=== PATIENT | male | born 1995 | race Hispanic/Latino ===

== ENCOUNTER 2018-12-19 07:35 | Emergency (ER) | payer OTHER ==
[~2018-12-19] VITALS: Ht 165.1 cm; Wt 81.8 kg
[2018-12-19] MEDS ORDERED: NS 1,000 ML IV ONE (07:45)
[2018-12-19 08:43] LABS: BASO % 0.5 % (0.0-1.0); EOS % 0.3 % (0.0-3.0); HEMATOCRIT 46.6 % (42.0-52.0); HEMOGLOBIN 15.9 g/dl (13.5-17.5); LYMPH % 13.1 % (24.0-44.0); MEAN CORPUSCULAR HEMOGLOBIN 31.7 pg (27.0-33.0); MEAN CORPUSCULAR HGB CONC 34.1 g/dl (32.0-36.5); MEAN CORPUSCULAR VOLUME 92.8 fl (80.0-96.0); MONO # 0.5 10^3/uL (0.0-0.8); MONO % 6.2 % (0.0-5.0); NEUTROPHILS # 6.3 10^3/uL (1.5-8.5); PLATELET COUNT, AUTOMATED 267 10^3/uL (150-450); RED BLOOD COUNT 5.02 10^6/uL (4.30-6.10)
[2018-12-19 08:57] LABS: INR 0.94; PROTHROMBIN TIME 12.3 SECONDS (11.8-14.0)
[2018-12-19 08:58] LABS: PARTIAL THROMBOPLASTIN TIME 31.6 SECONDS (25.0-38.4)
[2018-12-19] MEDS ORDERED: KETOROLAC 30 MG/ML VIAL (J1885) IV ONE ×2 (09:00→11:00)
[2018-12-19] MEDS ORDERED: ISOVUE-370 76% 100ML VIAL (Q9967) As Ordered ONE (09:02)
--- NOTE | 2018-12-19 09:13 | REP ---
Portable chest x-ray: Single view. History: Trauma. Findings: The lungs are well inflated and clear. Pleural angles are sharp. Heart size is normal. Pulmonary vasculature is not increased. No significant bony abnormality. Impression: Negative portable chest x-ray. Electronically Signed by Neto Parra MD 12/19/2018 09:05 A
[2018-12-19 09:18] LABS: ALBUMIN 4.2 GM/DL (3.2-5.2); ALT/SGPT 72 U/L (12-78); AMYLASE 49 U/L (25-115); BILIRUBIN,DIRECT < 0.1 MG/DL (0.0-0.2); BILIRUBIN,TOTAL 0.6 MG/DL (0.2-1.0); CK-MB VALUE MASS < 1.0 NG/ML (<3.6); CPK CREATINE PHOSPHOKINASE 131 U/L (39-308); ETHYL ALCOHOL (ETHANOL) < 0.003 % (0.000-0.010); LIPASE 87 U/L (73-393); MB/CK RELATIVE INDEX 0.76 (< OR =4); TOTAL PROTEIN 8.6 GM/DL (6.4-8.2); TROPONIN I < 0.02 NG/ML (< 0.10)
--- NOTE | 2018-12-19 09:52 | REP ---
CT chest with IV contrast: History: Trauma. CT contrast dose: 100 ml of intravenous Isovue 370. Comparison is made with today's portable chest x-ray. CT findings: There is no evidence of pneumothorax or hemothorax. Lung mendoza are well-aerated. No contusion is appreciated. There are is no evidence of mediastinal hematoma. Thoracic aorta enhances homogeneously and is normal in course and caliber. No aneurysm or aortic injury is seen. Pulmonary arterial tree enhances homogeneously as well. No hilar or mediastinal mass or adenopathy is observed. Bone window settings show no evidence of fracture. Impression: Negative contrast enhanced chest CT. No traumatic abnormality noted. Electronically Signed by Neto Parra MD 12/19/2018 09:45 A
--- NOTE | 2018-12-19 09:54 | REP ---
CT brain: 12/19/2018. Indication: Head trauma. Comparison: None. Findings: There is no acute intracranial hemorrhage, acute cortical infarction, mass effect, hydrocephalus or acute calvarial fracture. There is a focal area of hypoattenuation within the right temporal lobe most consistent with a neuroglial cyst. However, gadolinium enhanced MRI should be performed on a non emergent basis to exclude cystic neoplasm. Impression: No acute intracranial process. Right temporal region cyst as described. Please see above. Electronically Signed by Scott Mckenna DO 12/19/2018 09:46 A
--- NOTE | 2018-12-19 09:55 | REP ---
CT abdomen and pelvis with IV but without oral contrast: History: Trauma. CT contrast dose: 100 ml of intravenous Isovue 370. CT findings: Preliminary digital cad engineer radiograph demonstrates a normal bowel gas pattern. The liver and the spleen are normal in size homogeneous in texture and intact. No evidence of hematoma or laceration. Pancreas is unremarkable. No adrenal lesion is seen on either side. No abnormalities noted in the gallbladder. The kidneys enhance symmetrically and are morphologically intact as well. No retroperitoneal hematoma is seen. No mesenteric hematoma is appreciated. Small and large bowel loops are unremarkable in the abdomen and pelvis. There is no evidence of free air or hemoperitoneum. Urinary bladder is distended at the time of scanning. There is no evidence of bladder rupture. Normal appendix is seen. Prostate and seminal vesicles are unremarkable. Bone window settings show no fracture or significant bony abnormality. Impression: Negative CT study abdomen and pelvis with IV contrast. No traumatic abnormality noted. Electronically Signed by Neto Parra MD 12/19/2018 09:47 A
--- NOTE | 2018-12-19 10:08 | REP ---
CT cervical and lumbar spines: 12/19/2018. Indication: Cervical and lumbar spine trauma. Comparison: None. Technique: Axial CT images of the cervical and lumbar spines were performed with coronal and sagittal reconstructions provided. Findings: There is no acute fracture, subluxation or dislocation. There is mild straightening of the cervical lordosis which is likely positional. No hemorrhage is detected within the spinal canal or additional acute post traumatic spinal canal injuries. Impression: No acute post traumatic osseous injuries of the cervical or lumbar spines. Electronically Signed by Scott Mckenna DO 12/19/2018 09:59 A
[2018-12-19 11:00] VITALS: BP 122/80
[2018-12-19] MEDS ORDERED: ONDA4TAB6 PO (11:06)
[2018-12-19] MEDS ORDERED: IBUP-1022 PO (11:06)
--- NOTE | 2018-12-19 17:32 | ED PDOC ---
Post-Departure Follow-Up radology report faxed to Adina Voss MD Dec 19, 2018 17:32
== END 2018-12-19 11:24 | disposition home or self-care (01) ==
LOC: EDBD 07:35 → M ED 07:35
DX: S06.0X0A Concussion without loss of consciousness, initial encounter (principal); V49.49XA Driver injured in collision with other motor vehicles in traffic accident, initial encounter; Y92.410 Unspecified street and highway as the place of occurrence of the external cause; G93.0 Cerebral cysts
CPT/HCPCS: 36415; 70450; 71045; 71260; 72125; 72131; 74177; 80047; 80076; 81001; 82150; 82550; 82553; 83605; 83690; 84484; 85025; 85610; 85730; 86850; 86900; 86901; 93041; 94760; 96361; 96374; 96376; 99285; G0480; J1885; Q9967

== ENCOUNTER → 2019-03-27 | Outpatient (CLI) | payer OTHER ==
[~2019-03-27] MED LIST: IBUP-1022 PO; ONDA4TAB6 PO
== END ==
LOC: M PLALAB 12:07
PROVIDERS: ATTEND Psychiatry & Neurology Neurology
DX: G43.909 Migraine, unspecified, not intractable, without status migrainosus (principal)
CPT/HCPCS: 36415; G0480